=== PATIENT | female | born 1980 | race Caucasian/White ===

== ENCOUNTER 2021-09-16 00:32 | Day surgery (SDC) | payer BC, SELFPAY ==
[2021-09-07 13:23] VITALS: BMI 25.0
--- NOTE | 2021-09-15 10:58 | WPDANESEPPF ---
Anes - Initial Pre Proc Eval Procedure: Operation Date: 09/16/21 10:30 Proposed Procedures p Extractions of Four Teeth #Five, Eleven, Twenty-One, Twenty Eight - Jair Magallanes DMD Date/Time: 09/15/21 10:58 Surgeon: Jair Magallanes DMD Pre Op Diagnosis: periodontal disease, impacted tooth Patient Data Age: 40 Gender: F Height: 1.63 m Weight: 66 kg Allergies Allergy/AdvReac Type Severity Reaction Status Date / Time No Known Allergies Allergy Unverified 09/16/21 08:38 Home Medications Medication Instructions Recorded Confirmed Type No Home Medications 09/07/21 09/16/21 History Patient hx anesthesia problems: none Family hx anesthesia problems: none Results Review: All pre-operative results and documents have been reviewed as part of the pre-operative evaluation. [facility] Past Medical History Medical History (Updated 09/16/21 @ 07:17 by Jair Magallanes DMD) TIA (transient ischemic attack) Surgical History Surgical History (Updated 09/15/21 @ 10:59 by Ricardo Dhillon DO) History of Social History Social History Smoking packs per day: 0.5 Smoking cigarettes per day: 10.0 Years smoked: 20 Smoking pack-years: 10.00 Smoking status: Current every day smoker Tobacco type: cigarettes Alcohol intake: current Substance use: never Living arrangements: with family Spiritual care concerns: No Anes - Eval Final PreProcedure Day of Procedure 09/15/21 10:58 Patient weight: overweight Heart: regular rate and rhythm Lungs: clear to auscultation and normal air movement Airway: Mallampati scale class II Neurological: alert and oriented Last oral intake: >/= 8 hours ASA classification: III Emergent: no Anesthetic plan: proceed Anesthesia type and monitoring: general ETT and standard monitoring Results Review: All pre-operative results and documents have been reviewed as part of the pre-operative evaluation. Informed Consent: The patient's anesthetic plan and its attendant risks and benefits were discussed with the patient/family/POA. Questions were solicited and answers provided to the satisfaction of the patient/family/POA.
[2021-09-16] VITALS (9 sets, daily range): BP systolic 117–139; BP diastolic 77–92; PULSE 75–121; RESP 10–19; TEMP 36.1–37; O2SAT 100
--- NOTE | 2021-09-16 07:16 | WPDHPUPDATE1 ---
History and Physical Update Update Date/Time: 09/16/21 07:16 History and Physical has been reviewed, including an updated exam of the patient. There are NO changes in the patient's condition. Risks, benefits, and alternatives have been discussed and questions answered. Patient agrees to proceed with procedure.
--- NOTE | 2021-09-16 07:17 | PM.IMHP ---
H&P: HPI History of Present Illness Date/Time: 09/16/21 07:17 Chief Complaint: want straight teeth PMFSH Past Medical History Medical History (Updated 09/16/21 @ 07:17 by Jair Magallanes DMD) TIA (transient ischemic attack) Surgical History Surgical History (Updated 09/15/21 @ 10:59 by Ricardo Dhillon DO) History of Social History Social History Smoking packs per day: 0.5 Smoking cigarettes per day: 10.0 Years smoked: 20 Smoking pack-years: 10.00 Smoking status: Current every day smoker Tobacco type: cigarettes Alcohol intake: current Substance use: never Living arrangements: with family Spiritual care concerns: No Meds Home Medications and Allergies Home Medications Medication Instructions Recorded Confirmed Type No Home Medications 09/07/21 09/07/21 History Allergies Allergy/AdvReac Type Severity Reaction Status Date / Time No Known Allergies Allergy Unverified 02/12/19 18:02 Assessment and Plan Assessment and plan (1) Impacted teeth with abnormal position: Code(s): K01.1 - Impacted teeth Status: Acute Assessment and Plan: crowding and impacted teeth. sr 5,11,21,28
[2021-09-16] MEDS: LACTATED RINGERS 1,000 ML 30 ML IV CONT ×2 (09:16→11:04)
[2021-09-16] MEDS: OXYMETAZOLINE HCL 0.05% NAS 15 ML BTL (*BKC) 1 SPRAY NASAL (10:36)
[2021-09-16] MEDS: LIDOCAINE 2%-EPI (FOR DENTAL BLOCK) 1.7 ML CARTRIDGE INFILTRATE (10:40)
--- NOTE | 2021-09-16 11:08 | P.OPB_ITS ---
Procedure Note - Brief Procedure Note - Brief Date of procedure: 09/16/21 Pre-op diagnosis: periodontal disease, impacted tooth Surgeon: Jair Magallanes DMD Preoperative diagnosis dental crowding and impacted tooth 11. Postop diagnosis same procedure surgical movable of teeth numbers 511 21 and 28. Anesthesia general anesthesia and 4cc of 2% lidocaine with 1 100,000 epinephrine. Complications none. Estimated blood loss 10cc. Description of the procedure patient was encountered the operating [employer] the anesthesia service who induced general anesthetic. Oral cavity was suctioned free of debris and throat pack placed. Local anesthetic administered. Fifteen blade was used to make a circular incision area of tooth 5. And tooth 5. Was extracted using elevator forceps technique without complication. Second curetted free of debris and irrigated copious amount sterile saline. Attention was turned to tooth number 28 when incision was made and tooth number 28 was removed using forceps technique the complication. A small piece of the root tip fractured. Did a distal releasing incision was made in a full-thickness flap was elevated to the buckle. Bone overlying the right tube was removed and the tip was removed and the wound was thoroughly irrigated and then closed using 4-0 chromic gut suture in interrupted fashion. Attention was turned to the area of number 21 which was extracted in routine fashion. Socket curetted free of debris and irrigated copious amount sterile saline. Attention was turned the maxilla O were a palatal incision was made along the necks of the anterior teeth and a full- thickness flap was elevated to the palate. The nasal palatine neurovascular bundle was transected using cautery. Bone overlying tooth 11. Was removed using the hand piece in the tooth was sectioned and removed using alligator forceps technique without complication. Secured free of debris and irrigated copious amount sterile saline. Gingival tissues reapproximated using 4-0 chromic gut suture in interrupted fashion. Oral cavity suctioned free of debris and throat pack was removed. Gauze pack placed. Care of the patient was turned the issue Service extubated the patient transferred to recovery stable condition.
[2021-09-16] MEDS: fentaNYL CITRATE INJ (*CRX) 100 MCG/2 ML VIAL 25 MCG IV PUSH ×4 (11:40→11:52)
--- NOTE | 2021-09-16 12:35 | SUR.PHASEII ---
[id number]- Call to Dr. Dhillon patient requesting liquid Tylenol for headache at this time. Per Dr. Dhillon place order for Tylenol elixir 650MG once.
[2021-09-16] MEDS: ACETAMINOPHEN ELIXIR 325 MG/10.15 ML UDC 650 MG PO (12:41)
== END 2021-09-16 12:57 | disposition home or self-care (01) ==
PROVIDERS: PCP Nurse Practitioner Family; Visit Provider Dentist
PROC: (CPT 41899; principal; 2021-09-16 10:30)
DX: K05.6 Periodontal disease, unspecified (principal); K01.1 Impacted teeth; Z86.73 Personal history of transient ischemic attack (TIA), and cerebral infarction without residual deficits; F17.210 Nicotine dependence, cigarettes, uncomplicated
CPT/HCPCS: D7240 ×4; A9270; J0330; J1100; J2250; J2405; J2704; J3010; J7120

== ENCOUNTER 2023-01-26 15:05 | Outpatient (CLI) | payer OTHER, SELFPAY ==
--- NOTE | ~2023-01-26 | MM_ITS ---
EXAMINATION: MM screening [facility] w [facility] HISTORY: Screening mammogram TECHNIQUE: Craniocaudal and mediolateral oblique 3-D tomosynthesis images were obtained and synthetic 2-D images were generated. CAD analysis was submitted and interpreted. COMPARISON: No prior mammogram is available for comparison at this institution. BREAST PARENCHYMAL COMPOSITION: There are scattered areas of fibroglandular density. FINDINGS: There is no evidence of suspicious mass, calcification, or architectural distortion to sugg est malignancy in either breast. There has been no suspicious interval change. IMPRESSION: 1. No mammographic evidence of malignancy. 2. Recommend routine screening mammography in one year. BI-RADS Category 1: Negative Reviewed, dictated and finalized at location A. [facility] [employer]
== END 2023-01-26 15:06 | disposition home or self-care (01) ==
PROVIDERS: PCP Nurse Practitioner Family; Visit Provider Nurse Practitioner Family
DX: Z12.31 Encounter for screening mammogram for malignant neoplasm of breast (principal)
CPT/HCPCS: 77063; 77067

== ENCOUNTER 2024-09-13 15:41 | Emergency (ER) | payer OTHER, SELFPAY ==
--- NOTE | ~2024-09-13 | CT_ITS ---
CT abdomen pelvis w con Ordering provider: Micki Morales History: 43 years Female with . RUQ/epigastric/LUQ pain . Comparison: None. Technique: CT abdomen and pelvis with IV and without oral contrast. Automated exposure control and it erative reconstruction technique were employed. The dose-length product was 228.36 mGy-cm. 100 mL Omn ipaque 350 was given IV. Findings: VISUALIZED LOWER CHEST: Normal. UPPER ABDOMINAL ORGANS: Liver: Normal. Gallbladder: Normal. Spleen: Normal. Stomach/duodenum: Normal. Pancreas: Normal. Slightly prominent pancreatic duct. Adrenals: Normal. Kidneys: Normal. PELVIC ORGANS: The bladder is underfilled with slight thickening of the wall. Uterus: Retroverted. Small cysts in both ovaries which measure 1.6 cm on the left and 1.7 cm on the r ight side. BOWEL AND MESENTERY: Colon: No evidence of diverticulitis. Appendix is not demonstrated. No definite inflammatory changes in the right lower quadrant. Small Bowel: Normal. No obstruction. Peritoneum/mesentery: No free air or free fluid. No mesenteric lymphadenopathy. RETROPERITONEUM: Normal aorta. No retroperitoneal lymphadenopathy. MUSCULOSKELETAL: Superficial soft tissues: The superficial soft tissues are normal. Bones: Normal spine. IMPRESSION: 1. No evidence of appendicitis, diverticulitis or intestinal obstruction. Reviewed, dictated and finalized at location A.
[2024-09-13 15:45] VITALS: BP 135/93; PULSE 111; RESP 17; TEMP 36.6; O2SAT 100
--- NOTE | 2024-09-13 16:14 | ED.ABDPAIN ---
HPI - Abdominal Pain General Chief Complaint: Abdominal Pain Stated Complaint: abdominal pain Time Seen by Provider: 09/13/24 15:52 History of Present Illness HPI narrative: 43-year-old female presenting with abdominal pain. Patient states that for the last 12 hours or so she has had severe epigastric pain that has not been responsive to Pepto-Bismol or ibuprofen. No nausea or vomiting. States that she has had several normal bowel movements without improvement in her pain. She is on semaglutide and she is a bit concerned for pancreatitis. No further complaints or concerns. Related Data Allergies Allergy/AdvReac Type Severity Reaction Status Date / Time No Known Allergies Allergy Verified 09/13/24 15:49 Review of Systems Review of Systems: All systems reviewed & are unremarkable except as noted in HPI and below PMFSH Past Medical History Medical History TIA (transient ischemic attack) Surgical History Surgical History History of History of tubal ligation Family History Family History Father Hypertension Mother Diabetes mellitus Sibling Alcoholism Social History Social History Smoking packs per day: 0.5 Smoking cigarettes per day: 10.0 Years smoked: 20 Smoking pack-years: 10.00 Smoking status: Current every day smoker Tobacco type: cigarettes Alcohol intake: current Drinks per week: 3 Substance use: never Do You Feel Safe in your Home?: Yes Lack of Transportation: No Lack of Food: Never True Current Housing: I Have Housing Concerned About Future Housing: No Difficulty Paying Gas/Electric Bills: No Difficulty Paying for Meds: No Currently Unemployed: No Education: Don't Know Difficulty w/ Childcare or Family Care: No Living arrangements: with family Occupation/Education: occupation Additional occupation/education comments: H[employer] Gender identity (if verbalized by the patient): Female Sexual Orientation (if Verbalized by the Patient): Straight or Heterosexual Spiritual care concerns: No Agree to blood products: Yes Exam Narrative: GENERAL: Well-appearing, In no acute distress, pleasant and cooperative HEAD: Normocephalic, atraumatic. EYES: PERRLA and EOMI. ENT: Mucous membranes moist. NECK: Supple. CHEST: Clear to auscultation. No respiratory distress. HEART: tachycardic, regular rhythm ABDOMEN: Soft, +epigastric/RUQ/LUQ tenderness without guarding or rebound EXTREMITIES: Normal range of motion. SKIN: Warm, dry, no rash. NEURO: No focal deficits. Alert and oriented x3. PSYCH: Normal mood and affect. Course Vital Signs Vital signs: Vital Signs Temperature 98 F 09/13/24 15:45 Pulse Rate 111 H 09/13/24 15:45 Respiratory Rate 17 09/13/24 15:45 Blood Pressure 135/93 H 09/13/24 15:45 Pulse Oximetry 100 09/13/24 15:45 Oxygen Delivery Room Air 09/13/24 15:45 Temperature 98 F 09/13/24 15:45 Pulse Rate 103 H 09/13/24 17:45 Respiratory Rate 15 09/13/24 17:45 Blood Pressure 114/72 09/13/24 17:45 Pulse Oximetry 100 09/13/24 17:45 Oxygen Delivery Room Air 09/13/24 15:45 MDM - Abdominal Pain MDM Narrative Medical decision making narrative: 43-year-old female presenting with epigastric pain. Patient is a bit tachycardic, otherwise vitals are within normal limits. Exam remarkable for the above. Blood work with mild leukocytosis. Remainder of blood work is unremarkable. Normal lipase and renal function. CT abdomen pelvis without acute abnormalities. UA is not infected. Patient continues to have epigastric pain but we discussed the reassuring workup and she feels comfortable going home. Will try a GI cocktail. Advised close PCP follow-up
--- NOTE | 2024-09-13 16:22 | ECG_ITS ---
Test Date: 2024-09-13 16:55:08 Measurements Intervals [place] Rate: 93 P: -10 [place]: 132 QRS: -11 QRSD: 82 T: 5 QT: 371 QTc: 461 Interpretive Statements SINUS RHYTHM NORMAL ELECTROCARDIOGRAM No previous ECG available for comparison Electronically Signed On 09-14-2024 09:42:43 CDT by Abad Orona M.D.
[2024-09-13] MEDS: MORPHINE SULFATE (*CRX) 2 MG/ML INJ IV PUSH (16:35)
[2024-09-13] MEDS: ONDANSETRON INJ 4 MG/2 ML VIAL IV PUSH (16:35)
[2024-09-13] MEDS: SODIUM CHLORIDE 0.9% IV 1,000 ML 999 ML IV CONT (16:36)
[2024-09-13 16:42] LABS: Basophils Absolute Auto 0.1 K/mm3 (0.0-0.1); Basophils Percent Auto 0.4 % (0.2-1.2); Eosinophils Absolute Auto 0.1 K/mm3 (0-0.3); Eosinophils Percent Auto 1.2 % (0-4.4); Hematocrit 39.9 % (37.0-47.0); Hemoglobin 13.9 g/dL (12.0-15.0); Immature Granulocyte Absolute 0.03 K/mm3 (0.00-0.031); Immature Granulocyte Percent A 0.3 % (0-0.5); Lymphocytes Percent Auto 18.9 % (18.3-44.2); Mean Corpuscular HGB Conc 34.8 g/dl (32-36); Mean Corpuscular Hemoglobin 31.7 pg (26-34); Mean Corpuscular Volume 90.9 fl (80-100); Mean Platelet Volume 9.8 fl (7.4-10.4); Monocytes Absolute Auto 0.8 K/mm3 (0.1-0.6); Monocytes Percent Auto 6.9 % (2.6-8.5); Neutrophils Absolute Auto 8.4 K/mm3 (1.3-6.7); Neutrophils Percent Auto 72.3 % (45.5-73.1); Platelet Count Result 240 k/mm3 (150-375); Red Blood Count 4.39 M/mm3 (4.2-5.4); Red Cell Distribution Width 12.9 % (11.5-14.5); White Blood Count 11.6 K/mm3 (4.5-10.0)
[2024-09-13 16:45] VITALS: BP 129/83; PULSE 116; RESP 20; O2SAT 100
[2024-09-13 16:49] LABS: Add Urine Microscopic? YES; Appearance Urine Clear (Clear); Bacteria Urine 1+ /hpf; Bilirubin Urine Negative (Negative); Blood Urine Negative (Negative); Color Urine Yellow (Yellow); Glucose Urine UA Negative (Negative); Ketones Urine 3+ mg/dL (Negative); Leukocyte Esterase Ur Negative LEU/UL (Negative); Nitrate Urine Negative (Negative); Non Pathogenic Casts 0-2; Protein Urine Trace mg/dL (Negative); RBC Urine 0-2 /hpf (0-2); Specific Grav Ur 1.032 (1.001-1.035); Squamous Epithelial Cell Urine Moderate /hpf (Few); Urobilinogen Urine 0.2 mg/dL (<2.0); WBC Urine 0-5 /hpf (0-3); pH Urine 5.5 (5.0-9.0)
[2024-09-13 16:51] LABS: Alanine Aminotransferase 17 U/L (6-35); Albumin Level 4.5 g/dL (3.5-5.1); Alkaline Phosphatase 51 U/L (38-126); Anion Gap 10 mmol/L (4-12); Aspartate Amino Transferase 18 U/L (14-36); Bilirubin,Total 0.7 mg/dL (0.2-1.3); Blood Urea Nitrogen 14 mg/dL (7-17); Calcium 9.1 mg/dL (8.4-10.2); Carbon Dioxide 23 mmol/L (22-30); Chloride 102 mmol/L (98-107); Estimated CRCL calculation 75 ml/min; Estimated Glomerular Filt Rate > 60; Glucose 77 mg/dL (65-110); Lipase 66 U/L (23-300); Potassium 3.9 mmol/L (3.4-5.0); Sodium 135 mmol/L (137-145)
[2024-09-13 16:58] VITALS: BP 124/83; PULSE 89; RESP 12; O2SAT 100
[2024-09-13 17:45] VITALS: BP 114/72; PULSE 103; RESP 15; O2SAT 100
[2024-09-13] MEDS: BELLADONNA ALK/PHENOB ELIX 10 ML, MAG HYDROX/ALUMINUM HYD/SIMETH 30 ML, LIDOCAINE HCL 2... PO (18:11)
== END 2024-09-13 18:35 | disposition home or self-care (01) ==
PROVIDERS: Emergency Provider Emergency Medicine; PCP Nurse Practitioner Family
DX: R10.13 Epigastric pain (principal); F17.210 Nicotine dependence, cigarettes, uncomplicated; Z86.73 Personal history of transient ischemic attack (TIA), and cerebral infarction without residual deficits
CPT/HCPCS: 36415; 74177; 80053; 81001; 83690; 85025; 93005; 96361; 96374; 96375; 99284; A9270; J2270; J2405; J7030; Q9967